=== PATIENT | female | born 1935 | race Caucasian/White ===

== ENCOUNTER 2017-08-18 07:15 | Day surgery (SDC) | payer OTHER ==
[~2017-08-18] VITALS: Ht 144.8 cm; Wt 75.9 kg
[~2017-08-18 07:15] MED LIST: CLINDAMYCIN PHOS 600 MG/ D5W 50 ML PREMIX IV ONE; LEVOFLOXACIN 500 MG/D5W 100 ML IV ONE
[2017-08-18] MEDS ORDERED: LIP10 PO (08:50)
[2017-08-18] MEDS ORDERED: DOCU-144 PO (08:50)
[2017-08-18] MEDS ORDERED: OMEP20CA10 PO (08:50)
[2017-08-18] MEDS ORDERED: LOSA1TAB3 PO (08:50)
[2017-08-18] MEDS ORDERED: SULF1TAB48 PO (08:50)
[2017-08-18] MEDS ORDERED: LEVO88TA2 PO (08:50)
[2017-08-18] MEDS ORDERED: FENO160 PO (08:50)
[2017-08-18] MEDS ORDERED: DULA0.75 SQ (09:29)
[2017-08-18] MEDS ORDERED: LR 1,000 ML IV SCH (10:27)
[2017-08-18] MEDS ORDERED: MORPHINE SULFATE 10 MG/ML VIAL IVP PRN (10:30)
[2017-08-18] MEDS ORDERED: MEPERIDINE HCL/PF 25 MG/ML DISP.SYRIN IVP PRN (10:30)
[2017-08-18] MEDS ORDERED: MORPHINE 4 MG/ML INJ. SYRINGE IVP PRN ×2 (10:30)
[2017-08-18] MEDS ORDERED: FAMOTIDINE PF 20 MG/2 ML VIAL ONE ×2 (10:38→11:35)
[2017-08-18] MEDS ORDERED: ONDANSETRON HCL 4 MG/2 ML VIAL IVP PRN (11:30)
[2017-08-18] MEDS ORDERED: ACETAMINOPHEN 325 MG TABLET PO PRN (11:30)
[2017-08-18] MEDS ORDERED: LEVOFLOXACIN 500 MG/D5W 100 ML IV ONE (11:30)
[2017-08-18] MEDS ORDERED: HYDROcodone/ACETAMIN 5-325 MG TAB (NORCO/ VICODIN) PO PRN ×2 (11:30→13:30)
[2017-08-18] MEDS ORDERED: ONDANSETRON HCL 4 MG/2 ML VIAL ONE (11:35)
[2017-08-18] MEDS ORDERED: SEVOFLURANE 15 MIN GAS INH ONE (11:35)
[2017-08-18] MEDS ORDERED: ATROPINE SULFATE 0.4 MG/ML VIAL ONE (11:35)
[2017-08-18] MEDS ORDERED: CLINDAMYCIN PHOSPHATE 900 mg/50mL D5W IV ONE (11:35)
[2017-08-18] MEDS ORDERED: METOCLOPRAMIDE HCL 10 MG/2 ML VIAL ONE (11:35)
[2017-08-18] MEDS ORDERED: WATER FOR IRRIGATION,STERILE 1,000 ML IRRIG.SOLN IR ONE (11:35)
[2017-08-18] MEDS ORDERED: PROPOFOL 200MG/ 20ML VIAL (DIPRIVAN) IV ONE (11:35)
[2017-08-18] MEDS ORDERED: fentaNYL CITRATE 250 MCG/5 ML AMP ONE (11:35)
[2017-08-18] MEDS ORDERED: ISOSULFAN BLUE 5 ML VIAL (LYMPHAZURIN) ONE (11:35)
[2017-08-18] MEDS ORDERED: KETOROLAC TROMETHAMINE 15 MG VIAL ONE (11:35)
[2017-08-18] MEDS ORDERED: LR 1,000 ML IV.SOLN IV ONE (11:35)
[2017-08-18] MEDS ORDERED: DEXAMETHASONE SOD PHOSPHATE 4 MG/ML VIAL ONE (11:35)
[2017-08-18] MEDS ORDERED: MIDAZOLAM HCL 5 MG/ML VIAL (VERSED) IV ONE (11:35)
[2017-08-18] MEDS ORDERED: ROCURONIUM BROMIDE 10 MG/ML (ZEMURON) ONE (11:35)
[2017-08-18 12:35] VITALS: BP_SYST 119
[2017-08-18 13:00] VITALS: BP_SYST 119
[2017-08-18] MEDS ORDERED: HYDROmorphone 1 MG INJ. 1 MG/ML AMPUL IVP PRN (13:30)
[2017-08-18] MEDS: D5/0.45 NS 1,000 ML IV SCH ×2 (13:50→23:38)
[2017-08-18 19:50] VITALS: BP_SYST 110
[2017-08-18] MEDS: FAMOTIDINE PF 20 MG/2 ML VIAL IVP SCH (21:27)
[2017-08-19 00:47] VITALS: BP_SYST 129
[2017-08-19] MEDS: D5/0.45 NS 1,000 ML IV SCH (07:26)
[2017-08-19 08:13] VITALS: BP_SYST 130
[2017-08-19] MEDS: FAMOTIDINE PF 20 MG/2 ML VIAL IVP SCH (08:46)
[2017-08-19 09:52] VITALS: BP_SYST 130
== END 2017-08-19 10:25 | disposition home or self-care (01) ==
LOC: SDS 07:15 → SMU 07:15 → EDSTATUS 09:30 → SMU 13:21 → SDS 08-19 10:25
PROVIDERS: ATTEND Colon & Rectal Surgery
DX: C50.912 Malignant neoplasm of unspecified site of left female breast (principal); D64.9 Anemia, unspecified; I70.0 Atherosclerosis of aorta; G99.0 Autonomic neuropathy in diseases classified elsewhere; Z68.39 Body mass index [BMI] 39.0-39.9, adult; E78.5 Hyperlipidemia, unspecified; E03.9 Hypothyroidism, unspecified; Z68.33 Body mass index [BMI] 33.0-33.9, adult; Z83.3 Family history of diabetes mellitus; Z82.49 Family history of ischemic heart disease and other diseases of the circulatory system; Z80.0 Family history of malignant neoplasm of digestive organs; Z98.890 Other specified postprocedural states; I12.9 Hypertensive chronic kidney disease with stage 1 through stage 4 chronic kidney disease, or unspecified chronic kidney disease; E11.22 Type 2 diabetes mellitus with diabetic chronic kidney disease; N18.3 Chronic kidney disease, stage 3 (moderate); E11.3293 Type 2 diabetes mellitus with mild nonproliferative diabetic retinopathy without macular edema, bilateral; E11.42 Type 2 diabetes mellitus with diabetic polyneuropathy; E11.51 Type 2 diabetes mellitus with diabetic peripheral angiopathy without gangrene; Z79.899 Other long term (current) drug therapy
CPT/HCPCS: 19303; 38525; 76098; 78195; 88307; 88333; 88342; A9541; J0461; J1100; J1885; J2250; J2405; J2704; J2765; J3010; J3490 ×4; J7120; Q9968; J1956

== ENCOUNTER 2021-12-03 16:59 | Emergency (ER) | payer BC, OTHER ==
[~2021-12-03] VITALS: Ht 149.9 cm; Wt 70.3 kg
[~2021-12-03 16:59] MED LIST changes: -CLINDAMYCIN PHOS 600 MG/ D5W 50 ML PREMIX IV ONE; +DOCU-144 PO; +DULA0.75 SQ; +FENO160 PO; +LEVO88TA2 PO; -LEVOFLOXACIN 500 MG/D5W 100 ML IV ONE; +LIP10 PO; +LOSA1TAB3 PO; +OMEP20CA15 PO; +SULF1TAB48 PO
[2021-12-03 17:05] VITALS: BP_SYST 135
--- NOTE | 2021-12-03 17:12 | NUR ---
Patient triaged and placed in waiting room. VSS and patient appears in no acute distress at this time. Accompanied by , awaiting available bed, and MD notified of need for MSE.
[2021-12-03] MEDS ORDERED: PROPOFOL 200MG/ 20ML VIAL (DIPRIVAN) IV ONE (19:45)
--- NOTE | 2021-12-03 20:15 | NUR ---
# 20 gauge angiocath placed to R HAND. Use of asceptic technique. Opsite placed over site. Blood return noted. Flushed with 10 cc of normal saline. No evidence of infiltration noted. Patient tolerated well.
--- NOTE | 2021-12-03 20:18 | NUR ---
RAD at bedside for imaging.
--- NOTE | 2021-12-03 20:20 | NUR ---
ER at bedside examining patient.
[2021-12-03] MEDS ORDERED: MORPHINE 2 MG/ML INJ. SYRINGE IVP ONE (21:00)
[2021-12-03] MEDS ORDERED: NAPR-688 PO (21:27)
--- NOTE | 2021-12-03 21:46 | NUR ---
Patient given written and verbal discharge instructions and verbalizes understanding. ER MD Calderon discussed with patient the results and treatment provided. Patient in stable condition. ID arm band removed. IV catheter removed intact and dressing applied, no active bleeding. Rx of Naproxen sent to preferred pharmacy. Patient educated on pain management and to follow up with PMD. Pain Scale 3/10. Opportunity for questions provided and answered. Medication side effect fact sheet provided.
--- NOTE | 2021-12-03 21:47 | NUR ---
Sling & swathe applied to R shoulder as ordered by MD Calderon. Tolerated well. Educated on application/removal. Pt able to return back proper demonstration.
[2021-12-03 21:50] VITALS: BP_SYST 151
== END 2021-12-03 21:50 | disposition home or self-care (01) ==
LOC: SED 16:59
DX: S43.021A Posterior subluxation of right humerus, initial encounter (principal); Z88.0 Allergy status to penicillin; Z79.899 Other long term (current) drug therapy; X50.0XXA Overexertion from strenuous movement or load, initial encounter; Y93.89 Activity, other specified; Y92.89 Other specified places as the place of occurrence of the external cause; Y99.8 Other external cause status
CPT/HCPCS: 99283; 96374; 73030; J2270; J2704